=== PATIENT | female | born 1990 ===

== ENCOUNTER → 2025-02-13 | Day surgery (SDC) | payer BC ==
[~2025-02-13] MED LIST: Acetaminophen 500 MG TAB ONE
[2025-02-13] MEDS: Acetaminophen 500 MG TAB PO SCH (09:07)
[2025-02-13 14:36] VITALS: BP 103/70; TEMP 98.2
== END ==
LOC: EEVIPCON 09:06 → ONC/OP 09:06
PROVIDERS: ATTEND Advanced Practice Midwife
DX: O99.019 Anemia complicating pregnancy, unspecified trimester (principal); Z3A.00 Weeks of gestation of pregnancy not specified
CPT/HCPCS: 96365; 96366; J1756; J7050